=== PATIENT | male | born 1970 | race Caucasian/White ===

== ENCOUNTER → 2019-02-05 | Outpatient (CLI) | payer BC ==
[~2019-02-05] MED LIST: ASPI325T17 PO; DILT180C72 PO; LISI2.5T PO; METF10002 PO
== END | disposition home or self-care (01) ==
LOC: CVU 10:40
PROVIDERS: ATTEND Physician Assistant Medical
DX: I37.1 Nonrheumatic pulmonary valve insufficiency (principal); I48.91 Unspecified atrial fibrillation; I10 Essential (primary) hypertension; E78.5 Hyperlipidemia, unspecified; E11.9 Type 2 diabetes mellitus without complications; F17.200 Nicotine dependence, unspecified, uncomplicated
CPT/HCPCS: 93306